=== PATIENT | male | born 1975 | race Caucasian/White ===

== ENCOUNTER → 2023-03-26 08:47 | Outpatient (CLI) | payer BC, SELFPAY ==
--- NOTE | ~2023-03-26 | US_ITS ---
Abdominal Sonogram: Real-time sonographic imaging of the abdomen was performed. Clinical History: Fatty liver Findings: The liver appears echogenic, with no evidence of mass lesion or bile duct dilatation. It m easures 20.5 cm in length. Main portal vein demonstrates normal direction of flow. The spleen is mild ly enlarged, measuring 14.9 cm in length. The gallbladder is well distended, and appears normal with no evidence of gallstone or wall thickening. The common bile duct measures 4 mm. The visualized domínguez creas, aorta, and IVC are unremarkable. The right kidney measures 11.1 cm in length and the left kid roma measures 12.0 cm. There is no hydronephrosis or renal calculus. Impression: Diffuse fatty infiltration of the liver. Hepatosplenomegaly. Reviewed, dictated and finalized at location . Impression: Diffuse fatty infiltration of the liver. Hepatosplenomegaly.
== END ==
PROVIDERS: PCP Emergency Medicine; Visit Provider Emergency Medicine
DX: K76.0 Fatty (change of) liver, not elsewhere classified (principal)
CPT/HCPCS: 76700

== ENCOUNTER 2023-05-07 00:47 | Day surgery (SDC) | payer BC, SELFPAY ==
[2023-04-24 13:56] VITALS: BMI 33.4
[2023-05-07 08:37] VITALS: BP 123/95; PULSE 114; RESP 20; TEMP 35.9; O2SAT 97
[2023-05-07] MEDS: LACTATED RINGERS 1,000 ML 150 ML IV CONT (08:42)
[2023-05-07 08:53] LABS: Glucose Point of Care 160 mg/dl (65-105)
--- NOTE | 2023-05-07 09:35 | P.PNAN_ITS ---
Anes - Initial Pre Proc Eval Procedure: Operation Date: 05/07/23 10:00 Proposed Procedures p Screening Colonoscopy - Celso Leigh MD Date/Time: 05/07/23 09:35 Surgeon: Celso Leigh MD Pre Op Diagnosis: neoplasm screening Patient Data Age: 47 Gender: M Height: 1.85 m Weight: 108.5 kg Last Vital Signs Temp 96.7 F L 05/07/23 08:37 Pulse 114 H 05/07/23 08:37 Resp 20 05/07/23 08:37 BP 123/95 H 05/07/23 08:37 Pulse Ox 97 05/07/23 08:37 O2 Del Method Room Air 05/07/23 08:37 Allergies Allergy/AdvReac Type Severity Reaction Status Date / Time No Known Allergies Allergy Verified 05/07/23 08:32 Home Medications Medication Instructions Recorded Confirmed Type aspirin 81 mg tablet,delayed 81 mg PO DAILY 04/24/23 04/24/23 History release duloxetine 60 mg capsule,delayed 60 mg PO DAILY 04/24/23 04/24/23 History release flash glucose sensor (FreeStyle 04/24/23 04/24/23 History Catia 2 Sensor kit) folic acid 400 mcg tablet 400 mcg PO DAILY 04/24/23 04/24/23 History gabapentin 300 mg capsule 300 mg PO BID 04/24/23 04/24/23 History hydroxyzine HCl 25 mg tablet 25 mg PO Q8-10H 04/24/23 04/24/23 History lorazepam 1 mg tablet 1 mg PO Q6-8H 04/24/23 04/24/23 History omeprazole 40 mg capsule,delayed 40 mg PO DAILY 04/24/23 04/24/23 History release quetiapine 100 mg tablet 100 mg PO DAILY 04/24/23 04/24/23 History rosuvastatin 20 mg tablet 20 mg PO DAILY 04/24/23 04/24/23 History semaglutide 0.25 mg or 0.5 mg (2 0.25 mg subcut WEEKLY 04/24/23 04/24/23 History mg/3 mL) subcutaneous pen injector (Ozempic) Laboratory Tests 05/07/23 08:45 POC Capillary Glucose 160 H mg/dl (65-105) Patient hx anesthesia problems: none Family hx anesthesia problems: none Results Review: All pre-operative results and documents have been reviewed as part of the pre- operative evaluation. [facility], [facility] Social History Social History Smoking status: Never smoker Alcohol intake: never Substance use type: does not use Living arrangements: with family Spiritual care concerns: No Anes - Eval Final PreProcedure Day of Procedure 05/07/23 09:35 Patient weight: obese Heart: regular rate and rhythm Lungs: clear to auscultation Airway: Mallampati scale class II Neurological: alert and oriented Last oral intake: >/= 8 hours ASA classification: III Emergent: no Anesthetic plan: proceed Anesthesia type and monitoring: general GIVS and standard monitoring Results Review: All pre-operative results and documents have been reviewed as part of the pre- operative evaluation. Informed Consent: The patient's anesthetic plan and its attendant risks and benefits were discussed with the patient/family/POA. Questions were solicited and answers provided to the satisfaction of the patient/family/POA.
--- NOTE | 2023-05-07 09:55 | PM.HPGS ---
History of Present Illness History of Present Illness Consent: Risks, benefits, and alternatives have been discussed and questions answered. Patient agrees to proceed with procedure. Chief complaint: neoplasm screening Narrative: Spike Romero is a 47 year old male here for first screening colonoscopy Review of Systems Constitutional: Constitutional: Denies headache(s) and Denies weakness Eyes: Eyes: Denies blurry vision ENT: Reports Normal hearing present, Denies headache(s) and Denies neck pain Cardiovascular: Cardiovascular: Denies chest pain and Denies dyspnea Respiratory: Respiratory: Denies dyspnea Gastrointestinal: Gastrointestinal: Reports no additional gastrointestinal complaints Genitourinary: Genitourinary: Denies dysuria Musculoskeletal: Musculoskeletal: Denies neck pain Integumentary/Breasts: Skin/Breast: Denies dry skin Neurologic: Reports Normal hearing present, Denies headache(s) and Denies weakness Psychiatric: Psychiatric: Denies anxiety Endocrine: Endocrine: Denies change in body appearance Hematologic/Lymphatic: Hematologic/Lymphatic: Denies easy bleeding Allergic/Immunologic: Allergic/Immunologic: Denies urticaria [facility] Past Medical History Medical History (Updated 05/07/23 @ 09:55 by Celso Leigh MD) Colon cancer screening Social History Social History Smoking status: Never smoker Alcohol intake: never Substance use type: does not use Living arrangements: with family Spiritual care concerns: No Meds Home Medications and Allergies Home Medications Medication Instructions Recorded Confirmed Type aspirin 81 mg tablet,delayed 81 mg PO DAILY 04/24/23 04/24/23 History release duloxetine 60 mg capsule,delayed 60 mg PO DAILY 04/24/23 04/24/23 History release flash glucose sensor (FreeStyle 04/24/23 04/24/23 History Catia 2 Sensor kit) folic acid 400 mcg tablet 400 mcg PO DAILY 04/24/23 04/24/23 History gabapentin 300 mg capsule 300 mg PO BID 04/24/23 04/24/23 History hydroxyzine HCl 25 mg tablet 25 mg PO Q8-10H 04/24/23 04/24/23 History lorazepam 1 mg tablet 1 mg PO Q6-8H 04/24/23 04/24/23 History omeprazole 40 mg capsule,delayed 40 mg PO DAILY 04/24/23 04/24/23 History release quetiapine 100 mg tablet 100 mg PO DAILY 04/24/23 04/24/23 History rosuvastatin 20 mg tablet 20 mg PO DAILY 04/24/23 04/24/23 History semaglutide 0.25 mg or 0.5 mg (2 0.25 mg subcut WEEKLY 04/24/23 04/24/23 History mg/3 mL) subcutaneous pen injector (Ozempic) Allergies Allergy/AdvReac Type Severity Reaction Status Date / Time No Known Allergies Allergy Verified 05/07/23 08:32 Vital Signs Vital Signs - 24 hr 05/07/23 08:37 Temperature 96.7 F L Pulse Rate 114 H Respiratory Rate 20 Blood Pressure 123/95 H Pulse Oximetry 97 Oxygen Delivery Room Air Exam Const: General: comfortable and no acute distress HENMT: Face/Nose/Sinus: Normal nares present Eyes: General: appearance normal, both eyes and all related structures Neck: Neck: no JVD Resp: Auscultation: clear to auscultation bilaterally Cardio: Rate: regular rate Rhythm: regular rhythm GI: Inspection: non-distended GI Palp: Yes Soft to palpation Skin: General skin exam: normal color Neuro: General: gait normal Speech: normal speech Extrem: General: normal to inspection Psych: Mental Status: mental status grossly normal Assessment and Plan Assessment and plan (1) Colon cancer screening: Code(s): Z12.11 - Encounter for screening for malignant neoplasm of colon Status: Acute Assessment and Plan: colonoscopy
[2023-05-07 10:13] VITALS: BP 106/71; PULSE 101; RESP 19; O2SAT 93
[2023-05-07 10:23] VITALS: BP 110/71; PULSE 92; RESP 16; O2SAT 94
[2023-05-07 10:33] VITALS: BP 106/71; PULSE 81; RESP 19; O2SAT 94
== END 2023-05-07 10:54 | disposition home or self-care (01) ==
PROVIDERS: PCP Emergency Medicine; Visit Provider Internal Medicine Gastroenterology
PROC: 0DJD8ZZ Inspection of Lower Intestinal Tract, Via Natural or Artificial Opening Endoscopic (ICD-10-PCS; CPT 45378; principal; 2023-05-07 10:00)
DX: Z12.11 Encounter for screening for malignant neoplasm of colon (principal); E66.9 Obesity, unspecified; Z68.31 Body mass index [BMI] 31.0-31.9, adult; Z79.82 Long term (current) use of aspirin; Z79.85 Long-term (current) use of injectable non-insulin antidiabetic drugs
CPT/HCPCS: 45378; 82948; J2704; J7120